=== PATIENT | male | born 1985 | race Caucasian/White ===

== ENCOUNTER 2018-09-10 13:17 | Emergency (ER) | payer OTHER ==
[~2018-09-10] VITALS: Ht 182.9 cm; Wt 86.2 kg
[2018-09-10 13:35] VITALS: BP 110/73
[2018-09-10 14:14] LABS: BASOPHILS % (AUTO) 0.8 % (0.0-2.0); EOSINOPHILS % (AUTO) 2.3 % (0.0-6.0); HEMATOCRIT 43 % (39-51); HEMOGLOBIN 14.8 g/dL (13.5-17.5); LYMPHOCYTES # (AUTO) 1.5 /CMM (0.8-4.8); LYMPHOCYTES % (AUTO) 35.4 % (20.0-44.0); MEAN CORPUSCULAR HGB CONC 34 g/dl (31.0-36.0); MEAN CORPUSCULAR VOLUME 90 fL (80-96); MONOCYTES # (AUTO) 0.4 /CMM (0.1-1.30); MONOCYTES % (AUTO) 10.2 % (2.0-12.0); NEUTROPHILS # (AUTO) 2.2 /CMM (1.8-8.9); NEUTROPHILS % (AUTO) 51.3 % (43.0-81.0); PLATELET COUNT (AUTO) 228 /CMM (150-450); WHITE BLOOD COUNT (AUTO) 4.3 K/uL (4.3-11.0)
[2018-09-10 14:16] LABS: APPEARANCE,URINE Clear (CLEAR); BILIRUBIN,URINE Negative (NEGATIVE); BLOOD, URINE Large Ery/uL (NEGATIVE); COLOR,URINE Yellow (YELLOW); KETONES,URINE Negative (NEGATIVE); LEUKOCYTE ESTERASE ,URINE Negative (NEGATIVE); NITRITE, URINE Negative (NEGATIVE); PROTEIN,URINE Negative (NEGATIVE); UGLUCOSE Negative (NEGATIVE); UROBILINOGEN,URINE 0.2 EU/dL (0.2)
[2018-09-10 14:39] LABS: ALBUMIN 4.2 g/dL (3.4-5.0); BILIRUBIN,DIRECT 0.1 mg/dL (0.0-0.2); BILIRUBIN,TOTAL 0.8 mg/dL (0.2-1.0); CALCIUM, SERUM 9.1 mg/dL (8.5-10.1); CREATININE 1.1 mg/dL (0.6-1.3); POTASSIUM 4.2 mmol/L (3.5-5.1); TOTAL PROTEIN, SERUM 7.8 g/dL (6.4-8.2)
[2018-09-10 14:56] LABS: BACTERIA,URINE Rare /HPF (None Seen); RBC,URINE 21-50 /HPF (0-2); SQUAMOUS EPITHELIAL CELL,UR Few /HPF (None Seen); WBC,URINE NONE SEEN /HPF (0-3)
[2018-09-10] MEDS ORDERED: KETOROLAC TROMETHAMINE INJ 60 MG/2 ML VIAL IM ONE ×2 (15:40→16:00)
[2018-09-10] MEDS ORDERED: ONDANSETRON 4 MG TAB.RAPDIS ONE (15:41)
[2018-09-10] MEDS ORDERED: ONDANSETRON 4 MG TAB.RAPDIS PO ONE (16:00)
--- NOTE | 2018-09-10 16:13 | NUR ---
UNABLE TO ADMINISTER MEDS ON EMAR: GIVEN TORADOL 60MG IM ON LT DELTIOD AND ZOFRAN 4MG ODT. 1530
== END 2018-09-10 15:57 | disposition home or self-care (01) ==
LOC: ER 13:26
DX: N36.8 Other specified disorders of urethra (principal)
CPT/HCPCS: 36415; 74176; 80048; 80076; 81001; 83690; 85025; 99284; J1885; Q0162; 81000-TC

== ENCOUNTER 2018-09-23 12:46 | Emergency (ER) | payer OTHER ==
[~2018-09-23] VITALS: Ht 182.9 cm; Wt 85.3 kg
--- NOTE | 2018-09-23 13:33 | NUR ---
pt rocio states "im out i cant wait im seeing urology on tuesday"
[2018-09-23 13:34] VITALS: BP 122/73
[2018-09-23] MEDS ORDERED: IV NS 0.9% 1,000 ML BAG IV ONE (14:00)
[2018-09-23] MEDS ORDERED: KETOROLAC TROMETHAMINE INJ 30 MG/ML VIAL IV ONE (14:00)
== END 2018-09-23 13:37 | disposition home or self-care (01) ==
LOC: ER 12:46
DX: N23 Unspecified renal colic (principal); Z87.442 Personal history of urinary calculi
CPT/HCPCS: Z7502

== ENCOUNTER 2020-04-06 20:57 | Emergency (ER) | payer OTHER ==
[~2020-04-06] VITALS: Ht 182.9 cm; Wt 80.7 kg
--- NOTE | 2020-04-06 21:20 | NUR ---
BIBSELF C/O COUGH AND DIARRHEA. PT STATES HE HAS POSSIBLE COVID EXPOSURE AT WORK. PT AAOX4, VITAL SIGNS STABLE. O2 SAT 100% ROOM AIR. NO ACUTE DISTRESS NOTED AT THIS TIME
--- NOTE | 2020-04-06 21:25 | NUR ---
COVID SWAB COLLECTED AND SENT TO LAB
[2020-04-06 22:26] VITALS: BP 128/74
--- NOTE | 2020-04-06 22:26 | NUR ---
Patient discharged to home in stable condition. Written and verbal after care instructions given. Patient verbalizes understanding of instruction.Pt ambulatory with a steady gait
== END 2020-04-06 22:28 | disposition home or self-care (01) ==
LOC: ER 21:02
DX: U07.1 COVID-19 (principal); R19.7 Diarrhea, unspecified; M94.0 Chondrocostal junction syndrome [Tietze]
CPT/HCPCS: 71045; 87426; 99284; A6403; C9803; U0003

== ENCOUNTER 2020-06-22 16:38 | Emergency (ER) | payer OTHER ==
[~2020-06-22] VITALS: Ht 182.9 cm; Wt 82.6 kg
[2020-06-22 16:50] VITALS: BP 121/53
--- NOTE | 2020-06-22 16:52 | NUR ---
SEE AND EXAMINED BY .
--- NOTE | 2020-06-22 16:58 | NUR ---
INDUSTRIAL RECRUITER AT BEDSIDE FOR XRAY.
[2020-06-22] MEDS ORDERED: TRAM50TA2 PO (17:16)
--- NOTE | 2020-06-22 17:30 | NUR ---
PAUL WRAP ON R ANKLE AND CRUTCHES PROVIDED.
--- NOTE | 2020-06-22 17:35 | NUR ---
Patient discharged to home in stable condition. Written and verbal after care instructions given. Patient verbalizes understanding of instruction.
== END 2020-06-22 17:42 | disposition home or self-care (01) ==
LOC: ER 16:41
DX: S93.491A Sprain of other ligament of right ankle, initial encounter (principal); Z79.899 Other long term (current) drug therapy; W01.0XXA Fall on same level from slipping, tripping and stumbling without subsequent striking against object, initial encounter; Y93.66 Activity, soccer; Y92.89 Other specified places as the place of occurrence of the external cause; Y99.8 Other external cause status
CPT/HCPCS: 73610-TC

== ENCOUNTER 2022-06-05 10:29 | Emergency (ER) | payer OTHER ==
[~2022-06-05] VITALS: Ht 182.9 cm; Wt 81.6 kg
[~2022-06-05 10:29] MED LIST: TRAM50TA2 PO
--- NOTE | 2022-06-05 10:40 | NUR ---
at bedside for eval
--- NOTE | 2022-06-05 10:43 | NUR ---
PATIENT ARRIVED C/C LOWER BACK PAIN ON AMBULATION. A/O X 3
[2022-06-05] MEDS ORDERED: CAPS1ADH5 TP (10:48)
[2022-06-05] MEDS ORDERED: IBUP-1957 PO (10:48)
[2022-06-05 10:55] VITALS: BP 121/69
--- NOTE | 2022-06-05 10:55 | NUR ---
Patient discharged to home in stable condition. Written and verbal after care instructions given. Patient verbalizes understanding of instruction.
== END 2022-06-05 10:57 | disposition home or self-care (01) ==
LOC: ER 10:43
DX: S33.5XXA Sprain of ligaments of lumbar spine, initial encounter (principal); Z79.899 Other long term (current) drug therapy; X50.0XXA Overexertion from strenuous movement or load, initial encounter; Y93.89 Activity, other specified; Y92.89 Other specified places as the place of occurrence of the external cause; Y99.8 Other external cause status

== ENCOUNTER 2022-09-17 14:20 | Emergency (ER) | payer OTHER ==
[~2022-09-17] VITALS: Ht 182.9 cm; Wt 86.2 kg
[~2022-09-17 14:20] MED LIST changes: +CAPS1ADH5 TP; +IBUP-1957 PO
[2022-09-17 14:59] VITALS: BP 125/85
[2022-09-17] MEDS ORDERED: KETO15CR2 TP (15:34)
--- NOTE | 2022-09-17 15:43 | NUR ---
Patient discharged to home in stable condition. Written and verbal after care instructions given. Patient verbalizes understanding of instruction.
== END 2022-09-17 15:43 | disposition home or self-care (01) ==
LOC: ER 14:24
DX: B36.0 Pityriasis versicolor (principal); Z79.899 Other long term (current) drug therapy

== ENCOUNTER 2023-02-15 16:53 | Emergency (ER) | payer OTHER ==
[~2023-02-15] VITALS: Ht 182.9 cm; Wt 85.3 kg
[~2023-02-15 16:53] MED LIST changes: +KETO15CR2 TP
[2023-02-15 17:39] LABS: APPEARANCE,URINE CLEAR (CLEAR); BILIRUBIN,URINE NEGATIVE (NEGATIVE); BLOOD, URINE NEGATIVE Ery/uL (NEGATIVE); COLOR,URINE YELLOW (YELLOW); KETONES,URINE NEGATIVE (NEGATIVE); LEUKOCYTE ESTERASE ,URINE NEGATIVE (NEGATIVE); NITRITE, URINE NEGATIVE (NEGATIVE); PROTEIN,URINE NEGATIVE (NEGATIVE); UGLUCOSE NEGATIVE (NEGATIVE); UROBILINOGEN,URINE 0.2 EU/dL (0.2)
[2023-02-15 18:22] VITALS: BP 133/74; TEMP 98.2; O2SAT 98
== END 2023-02-15 18:22 | disposition home or self-care (01) ==
LOC: ER 16:56
DX: S39.848A Other specified injuries of external genitals, initial encounter (principal); N50.82 Scrotal pain; Z98.890 Other specified postprocedural states; Z79.899 Other long term (current) drug therapy; X50.1XXA Overexertion from prolonged static or awkward postures, initial encounter; Y93.66 Activity, soccer; Y92.89 Other specified places as the place of occurrence of the external cause; Y99.8 Other external cause status
CPT/HCPCS: 76870-TC

== ENCOUNTER 2023-09-21 11:43 | Emergency (ER) | payer OTHER ==
[~2023-09-21] VITALS: Ht 182.9 cm; Wt 84.8 kg
[2023-09-21 11:53] VITALS: TEMP 98.2
[2023-09-21] MEDS ORDERED: paxlovid PO (14:41)
[2023-09-21 15:10] VITALS: BP 122/66; O2SAT 100
== END 2023-09-21 15:20 | disposition home or self-care (01) ==
LOC: ER 11:45
DX: R05.9 Cough, unspecified (principal); R50.9 Fever, unspecified; Z20.822 Contact with and (suspected) exposure to COVID-19; Z98.52 Vasectomy status; Z90.89 Acquired absence of other organs; Z88.0 Allergy status to penicillin
CPT/HCPCS: 71045-TC